=== PATIENT | female | born 1960 | race Caucasian/White ===

== ENCOUNTER 2023-10-24 15:31 | Emergency (ER) | payer MEDICARE, SELFPAY ==
[2023-10-24] VITALS (15 sets, daily range): BP systolic 124–159; BP diastolic 81–92; PULSE 75–110; TEMP 36.6; O2SAT 90–96; BMI 37.6
--- NOTE | 2023-10-24 15:48 | XR_ITS ---
The [address] [address] Patient Name: CEDRIC GALARZA MRN: [id number] date: 1960 Sex: F Assigned Patient Location: ER Current Patient Location: ER Accession/Order Number: [id number] Exam Date: 10/24/2023 16:03 Report Date: 10/24/2023 16:16 At the request of: DUSTIN SULLIVAN Procedure: XR chest 1V EXAM: XR chest 1V HISTORY: abdominal pain, nausea and vomiting COMPARISON: 08/24/2022 and earlier chest x-ray TECHNIQUE: AP portable upright chest x-ray. FINDINGS: Minor atelectasis left lung base along the diaphragm, lungs otherwise clear without infiltrate or edema.. Heart size normal for technique, mediastinal contour within normal limits unchanged. No pleural effusion or pneumothorax. No pneumoperitoneum or distended bowel in the upper abdomen. XR/XR chest 1V IMPRESSION: Chest x-ray negative, no acute findings. Electronically authenticated by: NELIDA WOODARD Date: 10/24/2023 16:16
--- NOTE | 2023-10-24 15:48 | CT_ITS ---
The [address] [place], [place] [address] Patient Name: CEDRIC GALARZA MRN: [id number] date: 1960 Sex: F Assigned Patient Location: ER Current Patient Location: ER Accession/Order Number: [id number] Exam Date: 10/24/2023 17:22 Report Date: 10/24/2023 18:13 At the request of: DUSTIN SULLIVAN Procedure: CT abdomen pelvis w con EXAM: CT abdomen pelvis w con HISTORY: r/o diverticulitis (LLQ abdominal pain) . Nausea, vomiting. COMPARISON: CT scan with contrast 08/24/2022, CT without contrast 07/12/2022. TECHNIQUE: CT abdomen pelvis with contrast. Axial scans with reformatted coronal sagittal images. Contrast: 99 mL Omnipaque 300 FINDINGS: Lower chest: Stable, no acute findings. Hiatal hernia. ABDOMEN: No fluid or inflammation or other acute abnormality seen. Normal liver enhancement without focal lesion. Previous cholecystectomy. No duct dilatation. Adrenal glands, spleen pancreas unremarkable. No free fluid or ascites. No adenopathy. Normal size aorta. Normal symmetric enhancement of the kidneys without mass, hydronephrosis or obstruction. Nonobstructing 3 mm calculus mid left kidney. Normal ureters. No bowel distention wall thickening or edema. Scattered colonic diverticula without pericolonic fluid or diverticulitis. Normal appearing appendix right lower quadrant. Pelvis: No mass or adenopathy or free fluid. Small amount of fluid in the bladder. These hysterectomy. MUSCULOSKELETAL: No suspicious bone lesion. CT/CT abdomen pelvis w con IMPRESSION: No acute abdominal or pelvic pathology. Scattered colonic diverticula without diverticulitis. Electronically authenticated by: NELIDA WOODARD Date: 10/24/2023 18:13
--- NOTE | 2023-10-24 15:49 | ECG_ITS ---
The [facility] Test Date: 2023-10-24 Pat Name: CEDRIC GALARZA Department: Room: - Gender: Female Ledger Clerk: : 1960 Requested By: [id number] Order Number: [id number] Reading MD: STEPHEN VALERO Measurements Intervals [place] Rate: 85 P: 68 NH: 184 QRS: 6 QRSD: 84 T: 44 QT: 364 QTc: 406 Interpretive Statements 1100 Sinus rhythm 9110 normal ECG Compared to ECG 08/24/2022 22:00:10 No significant changes Electronically Signed On 10-25-2023 6:59:55 EDT by STEPHEN VALERO
--- NOTE | 2023-10-24 15:50 | ED_ITS ---
HPI HPI - General Adult General Chief complaint: Nausea/Vomiting/Diarrhea Stated complaint: Nausea/Vomiting/Diarrhea Time Seen by Provider: 10/24/23 15:43 Source: patient Mode of arrival: walk-in History of Present Illness HPI narrative: 63-year-old female presents to the ER with concerns of nausea and vomiting and left lower quadrant abdominal pain. Patient reports symptoms started last night abruptly, left lower quadrant abdominal pain progressing throughout the day. She has had prior cholecystectomy. She denies diarrhea last bowel movement was this morning and reported as normal. She has been unable to eat or drink. Pain moderate nonradiating left lower quadrant.Denies any chest pain or shortness of breath. Patient reports subjective chills and shakes.No Fever. Location: Reports abdomen Severity: moderate Quality: Reports constant Pain Consistency: Reports constant Relieving factors: Reports none Exacerbating factors: Reports none Treatments prior to arrival: Reports none Related Data Home Medications ?Medication ?Instructions ?Recorded ?Confirmed albuterol sulfate 90 mcg/actuation inhalation 10/24/23 aerosol inhaler dicyclomine 10 mg capsule mg 10/24/23 fluticasone propionate 50 intranasal 10/24/23 mcg/actuation nasal spray,suspension gabapentin 300 mg capsule mg 10/24/23 olanzapine 5 mg tablet mg 10/24/23 vortioxetine 10 mg tablet mg 10/24/23 (Trintellix) Previous Rx's ?Medication ?Instructions ?Recorded dicyclomine 20 mg tablet 20 mg PO TID PRN abdominal pain 2 10/24/23 days #6 tabs ondansetron HCl 4 mg tablet 4 mg PO Q6H PRN nausea and 10/24/23 vomiting #12 tabs Allergies Allergy/AdvReac Type Severity Reaction Status Date / Time nalbuphine [From Nubain] Allergy Unknown Verified 10/24/23 15:42 pregabalin [From Lyrica] Allergy Unknown Verified 10/24/23 15:42 Opioid HPI Opioid Management Most Recent Opioid Data: Last Pain Scale 8 10/24/23 18:01 Last AUG Pain Assessment 10/24/23 18:01 Review of Systems ROS Constitutional Reports: chills; Denies: fever Eyes Denies: change in vision or blurry vision Ears, nose, mouth, and throat Denies: throat pain or neck pain Cardiovascular Denies: chest pain, palpitations or edema Respiratory Reports: shortness of breath and cough; Denies: wheezing Gastrointestinal Reports: abdominal pain, nausea and vomiting; Denies: coffee grounds in vomit, heartburn or diarrhea Genitourinary Denies: painful urination Musculoskeletal Denies: back pain, neck pain or extremity pain Integumentary/Breast Denies: rash Neurological Denies: headache or numbness in extremities Psychiatric Denies: anxiety or mood swings Endocrine Denies: excessive urination Hematologic/Lymphatic Denies: easy bruising Exam Narrative Exam Narrative: Nurses notes and vital signs reviewed and patient is not hypoxic. General: The patient uncomfortable with bucket for emesis at bedside. no severe distress. Patient is resting comfortably on cart. Skin: Warm, dry, no pallor noted. No rash. Head: Normocephalic, atraumatic, Neck: Supple, trachea mid-line, no tenderness, no lymphadenopathy Eye: Pupils are equal, round and reactive to light, EOMI Ears, Nose, Mouth, and Throat: TM are clear, normal light reflex, oral mucosa is moist, no posterior oropharynx erythema or hypertrophy, uvula is mid-line Cardiovascular: Regular Rate and Rhythm Respiratory: Patient is in no distress, no accessory muscle use, lungs are clear to auscultation, no wheezing, rales or rhonchi. Chest Wall: no tenderness Back: non-tender, no CVA tenderness Musculoskeletal: normal ROM, no tenderness, no swelling GI: Normal bowel sounds, + tenderness to Left mid and lower quadrante. mild guarding. no masses appreciated. No rebound, or rigidity noted. Neurological: A&O x4 Psychiatric: Cooperative Constitutional Vital Signs, click to edit/add: Last Vital Signs Temp 98 F 10/24/23 15:35 Pulse 77 10/24/23 17:10 Resp 29 H 10/24/23 17:10 BP 159/92 H 10/24/23 17:00 Pulse Ox 96 10/24/23 15:35 O2 Del Method Room Air 10/24/23 15:35 Course Vital Signs Vital signs: Vital Signs Temperature 98 F 10/24/23 15:35 Pulse Rate 84 10/24/23 15:35 Respiratory Rate 18 10/24/23 15:35 Blood Pressure 124/90 10/24/23 15:35 Pulse Oximetry 96 10/24/23 15:35 Oxygen Delivery Method Room Air 10/24/23 15:35 Temperature 98 F 10/24/23 15:35 Pulse Rate 77 10/24/23 17:10 Respiratory Rate 29 H 10/24/23 17:10 Blood Pressure 159/92 H 10/24/23 17:00 Pulse Oximetry 96 10/24/23 15:35 Oxygen Delivery Method Room Air 10/24/23 15:35 Medical Decision Making MDM Narrative Medical decision making narrative: Patient medicated with Zofran for nausea, Pepcid, Toradol and Levsin. Patient reported no pain relief with medication, status post CT waiting for results given 1 mg IV Dilaudid. Patient's nausea is gone. We discussed laboratory studies. CT imaging without evidence of acute abdominal process, chest x-ray negative. Discussed Following clear liquids, brat diet, nausea medication and Bentyl will be sent to the pharmacy. Recommend follow-up to family doctor in the next 2 days, return to the ER if symptoms worsen or new symptoms develop. The patient is to followup with primary care physician in next 2-3 days or to return to the emergency department should any of the signs or symptoms worsen or new symptoms develop. Patient had questions answered. The patient agrees with the following Diagnosis and Treatment plan and the patient will be discharged home. Lab Data Lab results reviewed: Yes I reviewed the patient's lab results Labs: Lab Results 10/24/23 10/24/23 Range/Units 16:10 17:33 WBC 6.7 (4.0-11.0) 10^3/uL RBC 4.29 (4.20-5.40) 10^6/uL Hgb 10.6 L (12.0-16.0) g/dL Hct 35.0 L (36.0-48.0) % MCV 81.6 (81.0-99.0) fL MCH 24.7 L (26.7-34.0) pg MCHC 30.3 (29.9-35.2) g/dL RDW 15.1 H (11.0-15.0) % Plt Count 294 (150-450) 10^3/uL MPV 10.1 (9.5-13.5) fL Neut % (Auto) 56.7 (43.0-75.0) % Lymph % (Auto) 33.6 (20.5-60.0) % [place] % (Auto) 7.5 (1.7-12.0) % Eos % (Auto) 1.2 (0.9-7.0) % Baso % (Auto) 0.9 (0.2-2.0) % Neut # (Auto) 3.8 (1.4-6.5) 10^3/uL Lymph # (Auto) 2.3 (1.2-3.8) 10^3/uL [place] # (Auto) 0.5 (0.3-0.8) 10^3/uL Eos # (Auto) 0.1 (0.0-0.7) 10^3/uL Baso # (Auto) 0.1 (0.0-0.1) 10^3/uL Abs Immat Gran (auto) 0.01 (0.00-0.03) 10^3/uL Imm/Tot Granulo (auto) 0.1 (0.0-0.5) % Sodium 142 (136-145) mmol/L Potassium 3.4 L (3.5-5.1) mmol/L Chloride 106 (98-107) mmol/L Carbon Dioxide 28.5 (21.0-32.0) mmol/L Anion Gap 10.9 BUN 17.0 (7.0-18.0) mg/dL Creatinine 0.86 (0.55-1.02) mg/dL Est GFR ( Amer) >60 (>=60) Est GFR (Non-Af Amer) >60 (>=60) BUN/Creatinine Ratio 19.8 Glucose 86 (74-106) mg/dL Lactate 1.0 (0.4-2.0) mmol/L Calcium 9.2 (8.5-10.1) mg/dL Total Bilirubin 0.4 (0.2-1.0) mg/dL AST 10 L (15-37) U/L ALT 11 L (14-59) U/L Alkaline Phosphatase 102 (46-116) U/L Troponin I High Sens 5.0 (4.0-51.3) pg/mL Total Protein 7.7 (6.4-8.2) g/dL Albumin 3.6 (3.4-5.0) g/dL Globulin 4.1 g/dL Albumin/Globulin Ratio 0.9 Lipase 23.0 (16.0-77.0) U/L Urine Color Lt. yellow (YELLOW) Urine Clarity Clear (CLEAR) Urine pH 7.0 (5.0-9.0) Ur Specific [place] 1.010 (1.005-1.025) Urine Protein Negative (NEG/TRACE) mg/dL Urine Glucose (UA) Negative (NEGATIVE) mg/dL Urine Ketones Negative (NEGATIVE) mg/dL Urine Occult Blood Negative (NEGATIVE) Urine Nitrite Negative (NEGATIVE) Urine Bilirubin Negative (NEGATIVE) Urine Urobilinogen 0.2 (0.2-1.0) EU/dL Ur Leukocyte Esterase Negative (NEGATIVE) Imaging Data CT scan - abdomen: Radiologist's impression: ITS Impressions Abdomen/Pelvis CT 10/24/23 15:48 IMPRESSION: No acute abdominal or pelvic pathology. Scattered colonic diverticula without diverticulitis. Electronically authenticated by: NELIDA WOODARD Date: 10/24/2023 18:13 Chest X-Ray 10/24/23 15:48 IMPRESSION: Chest x-ray negative, no acute findings. Electronically authenticated by: NELIDA WOODARD Date: 10/24/2023 16:16 Chest x-ray: Radiologist's impression: ITS Impressions Abdomen/Pelvis CT 10/24/23 15:48 IMPRESSION: No acute abdominal or pelvic pathology. Scattered colonic diverticula without diverticulitis. Electronically authenticated by: NELIDA WOODARD Date: 10/24/2023 18:13 Chest X-Ray 10/24/23 15:48 IMPRESSION: Chest x-ray negative, no acute findings. Electronically authenticated by: NELIDA WOODARD Date: 10/24/2023 16:16 ECG Data Attestation: I personally reviewed and interpreted this ECG as follows: Interpretation: EKG interpretation: Emergency Department physician interpretation, normal sinus rhythm 61bpm, no ectopy, no ST segment elevation, normal axis. Discharge Plan Discharge Stand Alone Forms: Portal Instructions Chief Complaint: Nausea/Vomiting/Diarrhea Clinical Impression: Nausea & vomiting, Abdominal pain Patient Disposition: Home, Self-Care Time of Disposition Decision: 18:19 Condition: Good Prescriptions / Home Meds: New dicyclomine 20 mg tablet 20 mg PO TID PRN (Reason: abdominal pain) 2 Days Qty: 6 0RF ondansetron HCl 4 mg tablet 4 mg PO Q6H PRN (Reason: nausea and vomiting) Qty: 12 0RF No Action olanzapine 5 mg tablet gabapentin 300 mg capsule albuterol sulfate 90 mcg/actuation HFA aerosol inhaler INHALATION fluticasone propionate 50 mcg/actuation spray,suspension INTRANASAL dicyclomine 10 mg capsule Trintellix 10 mg tablet Print Language: Irish Instructions: Acute Nausea and Vomiting (ED), Abdominal Pain (ED) Additional Instructions: Contact pcp for follow up in 1-2 days Referrals: TIERRA RODRIGUEZ [Primary Care Provider] - As soon as possible
[2023-10-24] MEDS: 0.9 % SODIUM CHLORIDE 1,000 ML 999 ML IV (16:13)
[2023-10-24] MEDS: ONDANSETRON PF 4 MG/2 ML VIAL IV (16:15)
[2023-10-24] MEDS: FAMOTIDINE/PF 20 MG/2 ML VIAL IV (16:16)
[2023-10-24] MEDS: KETOROLAC TROMETHAMINE 30 MG/ML VIAL IVP (16:17)
[2023-10-24] MEDS: HYOSCYAMINE SULFATE 0.125 MG TAB.SUBL SL (16:19)
[2023-10-24 16:25] LABS: Basophils Absolute Auto 0.1 10^3/uL (0.0-0.1); Basophils Percent Auto 0.9 % (0.2-2.0); Eosinophils Absolute Auto 0.1 10^3/uL (0.0-0.7); Eosinophils Percent Auto 1.2 % (0.9-7.0); Hemoglobin 10.6 g/dL (12.0-16.0); Immature Granulocytes Abs Auto 0.01 10^3/uL (0.00-0.03); Immature Granulocytes Pct Auto 0.1 % (0.0-0.5); Lymphocytes Absolute Auto 2.3 10^3/uL (1.2-3.8); Lymphocytes Percent Auto 33.6 % (20.5-60.0); Mean Corpuscular HGB Conc 30.3 g/dL (29.9-35.2); Mean Corpuscular Hemoglobin 24.7 pg (26.7-34.0); Mean Corpuscular Volume 81.6 fL (81.0-99.0); Mean Platelet Volume 10.1 fL (9.5-13.5); Monocytes Absolute Auto 0.5 10^3/uL (0.3-0.8); Monocytes Percent Auto 7.5 % (1.7-12.0); Neutrophils Absolute Auto 3.8 10^3/uL (1.4-6.5); Neutrophils Percent Auto 56.7 % (43.0-75.0); Platelet Count 294 10^3/uL (150-450); Red Blood Count 4.29 10^6/uL (4.20-5.40); Red Cell Distribution Width 15.1 % (11.0-15.0); White Blood Count 6.7 10^3/uL (4.0-11.0)
[2023-10-24 16:45] LABS: Alanine Aminotransferase 11 U/L (14-59); Albumin Globulin Ratio 0.9; Albumin Level 3.6 g/dL (3.4-5.0); Alkaline Phosphatase 102 U/L (46-116); Anion Gap 10.9; Aspartate Amino Transferase 10 U/L (15-37); BUN Creatinine Ratio 19.8; Bilirubin Total 0.4 mg/dL (0.2-1.0); Calcium 9.2 mg/dL (8.5-10.1); Carbon Dioxide 28.5 mmol/L (21.0-32.0); Chloride 106 mmol/L (98-107); Estimated GFR (African America >60 (>=60); Estimated GFR (Non-African Ame >60 (>=60); Globulin 4.1 g/dL; Glucose 86 mg/dL (74-106); Potassium 3.4 mmol/L (3.5-5.1); Sodium 142 mmol/L (136-145); Total Protein 7.7 g/dL (6.4-8.2)
[2023-10-24 17:47] LABS: Bilirubin Urine NEGATIVE (NEGATIVE); Blood Urine NEGATIVE (NEGATIVE); Clarity Urine CLEAR (CLEAR); Color Urine LT. YELLOW (YELLOW); Glucose Urine UA NEGATIVE (NEGATIVE); Ketones Urine NEGATIVE (NEGATIVE); Leukocyte Esterase Urine NEGATIVE (NEGATIVE); Nitrite Urine NEGATIVE (NEGATIVE); Protein Urine NEGATIVE (NEG/TRACE); Urine Microscopic Indicated NO; Urobilinogen Urine 0.2 EU/dL (0.2-1.0)
[2023-10-24] MEDS: HYDROMORPHONE HCL 1 MG/ML CARTRIDGE IV (18:01)
== END 2023-10-24 18:34 | disposition home or self-care (01) ==
PROVIDERS: Personal Emergency Response Attendant; Emergency Provider Emergency Medicine Emergency Medical Services; PCP Family Medicine
DX: R11.2 Nausea with vomiting, unspecified (principal); R10.9 Unspecified abdominal pain; Z79.899 Other long term (current) drug therapy
CPT/HCPCS: 36415; 71045; 74177; 80053; 81003; 83605; 83690; 84484; 85025; 93005; 96361; 96374; 96375; 99285; J1170; Q9967